=== PATIENT | male | born 1975 | race Two or more races ===

== ENCOUNTER 2018-08-03 15:48 | Emergency (ER) | payer SELFPAY ==
[~2018-08-03] VITALS: Ht 167.6 cm; Wt 94.3 kg
[2018-08-03 18:45] VITALS: BP 159/111
== END 2018-08-03 19:33 | disposition home or self-care (01) ==
LOC: ER 15:53
DX: M54.5 Low back pain (principal); V43.52XA Car driver injured in collision with other type car in traffic accident, initial encounter; Y93.89 Activity, other specified; Y99.8 Other external cause status; Y92.410 Unspecified street and highway as the place of occurrence of the external cause
CPT/HCPCS: 72070; 72100